=== PATIENT | male | born 1990 | race Caucasian/White ===

== ENCOUNTER 2018-07-07 11:53 | Emergency (ER) | payer OTHER ==
[~2018-07-07] VITALS: Ht 188 cm; Wt 117.0 kg
[2018-07-07 12:01] VITALS: BP 148/89
[2018-07-07] MEDS ORDERED: LIDOCAINE HCL V15 ML PO (12:08)
[2018-07-07] MEDS ORDERED: IBUPROFEN800 M1 PO (12:08)
--- NOTE | 2018-07-07 12:08 | ED INFLUENZA/URI COMPLAINT ---
History of Present Illness General Chief Complaint: General Adult Stated Complaint: TROUBLE SWALLOWING,FEVER,NO APPETITE X4 DAY PER PT Source: patient Exam Limitations: no limitations Vital Signs & Intake/Output Vital Signs & Intake/Output Vital Signs Date Time Temp Pulse Resp B/P B/P Pulse O2 O2 Flow FiO2 Mean Ox Delivery Rate 07/07 1224 98 Room Air 07/07 1201 98.2 91 16 148/89 98 Room Air Room Air Allergies Coded Allergies: No Known Allergies (07/07/18) Reconcile Medications Ibuprofen 800 MG TABLET 1 TAB PO TID pain Lidocaine HCl (Lidocaine HCl Viscous) 2 % SOLUTION 15 ML PO 4 TIMES/DAY sore throat magic mouth wash ( benadryl, maalox, lidocaine equal parts) Triage Note: PT TO TRIAGE FOR FEVERS SINCE WEDNESDAY. PT SAW PMD AND WAS NEGATIVE FOR MONO AND STREP. PT STARTED TO HAVE BLISTERS TO HIS HANDS YESTERDAY. Triage Nurses Notes Reviewed? yes Onset: Abrupt Duration: day(s): (4), constant Timing: recent history HPI: 28-year-old male comes into the emergency room with complaints of fevers sore throat and rash. Patient reports that the fevers began this past Wednesday 4 days ago. Fevers of 102 at home. He had an associated sore throat. He went to his primary care doctor yesterday and was started on amoxicillin. He reports they called today and the strep and mono were negative. He reports now he noticed a rash on his hands and around his mouth. He comes in for further evaluation. Denies any vomiting cough runny nose and nasal congestion. He reports that he has 3 children all under the age of 8. One was sick with vomiting on Wednesday but no other symptoms. Past History Travel History Traveled to [place] past 21 day No Medical History Any Pertinent Medical History? see below for history Neurological: NONE EENT: NONE Cardiovascular: NONE Respiratory: NONE Gastrointestinal: NONE Hepatic: NONE Renal: NONE Musculoskeletal: NONE Psychiatric: NONE Endocrine: NONE Blood Disorders: NONE Cancer(s): NONE HEALTH RESEARCHER/Reproductive: NONE Surgical History Surgical History: none Psychosocial History What is your primary language Ma[place] Tobacco Use: Never used ETOH Use: occasional use Illicit Drug Use: denies illicit drug use Family History Hx Contributory? No Review of Systems Review of Systems Constitutional: Reports: see HPI. EENTM: Reports: see HPI. Respiratory: Reports: no symptoms. Cardiovascular: Reports: no symptoms. GI: Reports: no symptoms. Genitourinary: Reports: no symptoms. Musculoskeletal: Reports: no symptoms. Skin: Reports: see HPI. Neurological/Psychological: Reports: no symptoms. Hematologic/Endocrine: Reports: no symptoms. Immunologic/Allergic: Reports: no symptoms. All Other Systems: Reviewed and Negative Physical Exam Physical Exam General Appearance: well developed/nourished, no apparent distress, alert, awake Head: atraumatic Eyes: Bilateral: normal appearance. Ears, Nose, Throat: moist mucous membrane, hearing grossly normal, pharyngeal erythema, red ulcerations/macules on roof of mouth Neck: normal inspection, supple, full range of motion Respiratory: normal breath sounds, no respiratory distress Back: normal inspection Extremities: normal inspection Neurologic/Psych: awake, alert, oriented x 3 Skin: intact, rash, Erythematous papular rash around her mouth, papular lesions on hands, nothing on the scene, Core Measures Sepsis Present: No Sepsis Focused Exam Completed? No Progress Differential Diagnosis: influenza, sinusitis, [id number]-[id number]-mouth disease, coxsackievirus, strep throat, Plan of Care: 07/07/2018 2:33:21 PM She clinically looks well. Symptoms are most consistent with viral illness. He had a negative strep and a negative mono by his PCP yesterday. Rest. Supportive care. Drink any fluids. Initial ED EKG: none Departure Departure Disposition: HOME OR SELF CARE Condition: Stable Clinical Impression Primary Impression: Viral syndrome Secondary Impressions: Hand, foot and mouth disease Referrals: Carmen Augustine MD Additional Instructions: Use Magic mouthwash as prescribed. Take ibuprofen as prescribed. Rest. Drink plenty of fluids. Please go over all results of today's visit with your primary care doctor. Contact your primary care doctor to let them know you were here in the emergency room. There may be nonspecific findings which may not be related to your visit today here in the emergency room but may require further evaluation and chronic monitoring by your primary care doctor. If you had a laceration today the chance of foreign body always remains. You should follow-up with your primary care doctor for recheck in 3-5 days for a wound check. If you had an x-ray done there is a chance that a fracture could have been missed on initial read and you should follow-up with your primary care doctor for repeat x-rays if symptoms persist. If your blood pressure was elevated here in the emergency room please have rechecked by primo primary care doctor within the next 48. If you were prescribed a narcotic here in the emergency room or any type of controlled substances you're not allowed to drive while taking this medication or operate any type of heavy machinery. Narcotics can make you feel lightheaded dizziness nausea and can cause constipation. You may need to pickup driver a stool softener. Thank you for choosing [facility] emergency room. Please return to the emergency room immediately if you have any other concerns worsening of symptoms. Departure Forms: Customer Survey General Discharge Information Prescriptions: Current Visit Scripts Ibuprofen 1 TAB PO TID #30 TAB Lidocaine HCl (Lidocaine HCl Viscous) 15 ML PO 4 TIMES/DAY #100 ML magic mouth wash ( benadryl, maalox, lidocaine equal parts)
== END 2018-07-07 12:27 ==
LOC: ERH 11:53
DX: B34.9 Viral infection, unspecified (principal); B08.4 Enteroviral vesicular stomatitis with exanthem